=== PATIENT | male | born 1985 | race Two or more races ===

== ENCOUNTER 2019-08-31 13:56 | Emergency (ER) | payer OTHER ==
[~2019-08-31] VITALS: Ht 180.3 cm; Wt 97.5 kg
[2019-08-31] MEDS ORDERED: ECOTRIN81 MG (14:08)
[2019-08-31] MEDS ORDERED: CARVEDILOL ER40 MG (14:09)
[2019-09-01] MEDS ORDERED: VISTARIL50 MG PO (06:16)
[2019-09-01] MEDS ORDERED: ZOFRAN4 MG PO (06:16)
[2019-09-01] MEDS ORDERED: PEPCID40 MG PO (06:16)
[2019-09-01] MEDS ORDERED: INTESTINEX680 M1 PO (06:16)
== END 2019-09-01 06:38 | disposition home or self-care (01) ==
LOC: ER 13:56
DX: K52.9 Noninfective gastroenteritis and colitis, unspecified (principal); G44.209 Tension-type headache, unspecified, not intractable

== ENCOUNTER 2019-10-09 19:17 | Emergency (ER) | payer OTHER ==
[~2019-10-09] VITALS: Ht 180.3 cm; Wt 95.3 kg
[~2019-10-09 19:17] MED LIST: CARVEDILOL ER40 MG; ECOTRIN81 MG; INTESTINEX680 M1 PO; PEPCID40 MG PO; VISTARIL50 MG PO; ZOFRAN4 MG PO
== END 2019-10-09 22:02 | disposition home or self-care (01) ==
LOC: ER 19:17
DX: M94.0 Chondrocostal junction syndrome [Tietze] (principal)